=== PATIENT | male | born 1995 | race Hispanic/Latino ===

== ENCOUNTER 2017-08-25 07:21 | Emergency (ER) | payer OTHER ==
[~2017-08-25] VITALS: Ht 162.6 cm; Wt 79.4 kg
[2017-08-25] MEDS ORDERED: HYDROCODONE/APAP 7.5MG-325MG 1 EA TAB PO STA (07:51)
[2017-08-25 09:49] VITALS: BP 130/81
--- NOTE | 2017-08-25 10:53 | Diagnostic Imaging Report ---
Left Ankle - 3 views HISTORY: Pain. COMPARISON: None available. FINDINGS: Bones: No acute displaced fracture. No expansile lytic or sclerotic lesion. Joints: The joint spaces are well-maintained. No dislocation. Soft tissues: The soft tissues appear unremarkable. IMPRESSION: No acute radiographic abnormality. Signed by: Dr. Paul Guerrero M.D. on 08/25/2017 10:26 AM
--- NOTE | 2017-08-25 10:53 | Diagnostic Imaging Report ---
Left foot - 3 views HISTORY: Pain. COMPARISON: None available. FINDINGS: Bones: No acute displaced fracture. No expansile lytic or sclerotic lesion. Joints: The joint spaces are well-maintained. No dislocation. Soft tissues: The soft tissues appear unremarkable. IMPRESSION: No acute radiographic abnormality. Signed by: Dr. Paul Guerrero M.D. on 08/25/2017 10:25 AM
== END 2017-08-25 10:05 | disposition home or self-care (01) ==
LOC: ER 07:21
PROC: 2W3RX1Z Immobilization of Left Lower Leg using Splint (ICD-10-PCS; principal; 2017-08-25)
DX: G89.11 Acute pain due to trauma (principal); S93.622A Sprain of tarsometatarsal ligament of left foot, initial encounter; S93.492A Sprain of other ligament of left ankle, initial encounter; X50.1XXA Overexertion from prolonged static or awkward postures, initial encounter; Y93.41 Activity, dancing; Y92.89 Other specified places as the place of occurrence of the external cause
CPT/HCPCS: 99283